=== PATIENT | female | born 1985 | race Caucasian/White ===

== ENCOUNTER 2017-07-23 13:06 | Emergency (ER) | payer OTHER ==
[~2017-07-23] VITALS: Ht 160 cm; Wt 108.9 kg
[~2017-07-23 13:06] MED LIST: ACET160T6 PO; BISA-79 PO; CLON0.1T PO; DICL100G16 TP; DIVA500T2 PO; DOCU-141 PO; DULO60CA45 PO; HYDR10SY12 PO; LEVO75TA7 PO; LORA10TA68 PO; METO25TA6 PO; OXYC10TA PO; PANT40TA4 PO; SEVE800T8 PO; TOBR5DRO12 EACHEYE
[2017-07-23 13:17] VITALS: BP 132/75
== END 2017-07-23 14:26 | disposition home or self-care (01) ==
LOC: ER 13:07
DX: B34.9 Viral infection, unspecified (principal); J06.9 Acute upper respiratory infection, unspecified; J34.89 Other specified disorders of nose and nasal sinuses; F17.200 Nicotine dependence, unspecified, uncomplicated; G89.29 Other chronic pain; Z98.82 Breast implant status
CPT/HCPCS: A4606; Z7502; Z7610

== ENCOUNTER 2017-09-17 21:22 | Emergency (ER) | payer OTHER ==
[~2017-09-17] VITALS: Ht 172.7 cm; Wt 113.9 kg
[~2017-09-17 21:22] MED LIST changes: -TOBR5DRO12 EACHEYE; +TOBR5DRO36 EACHEYE
--- NOTE | 2017-09-17 21:50 | NUR ---
PT A/OX4 BREATHING EFFORTLESSLY ON ROOM AIR, PT C/O PALPITATIONS X 1 DAY, PT DENIES CP AT THIS TIME, PT PLACED ON MONITOR, PT IN GOWN, LAB CALLED FOR DRAW, WESTON LAMBERT AT BEDSIDE, NAD NOTED AT THIS TIME, WILL CONTINUE TO MONITOR
[2017-09-17 22:26] LABS: BASOPHILS # (AUTO) 0.1 /CMM (0.0-0.2); BASOPHILS % (AUTO) 1.1 % (0.0-2.0); EOSINOPHILS % (AUTO) 2.5 % (0.0-6.0); HEMATOCRIT 41 % (33-45); HEMOGLOBIN 14.2 g/dL (11.5-14.8); LYMPHOCYTES # (AUTO) 3.5 /CMM (0.8-4.8); LYMPHOCYTES % (AUTO) 29.9 % (20.0-44.0); MEAN CORPUSCULAR HGB CONC 34 g/dl (31.0-36.0); MEAN CORPUSCULAR VOLUME 88 fL (82-100); MONOCYTES % (AUTO) 8.6 % (2.0-12.0); NEUTROPHILS # (AUTO) 6.8 /CMM (1.8-8.9); NEUTROPHILS % (AUTO) 57.9 % (43.0-81.0); PLATELET COUNT (AUTO) 259 /CMM (150-450); RDW COEFFICIENT OF VARIATION 13.4 (11.5-15.0); RED BLOOD CELL COUNT(AUTO) 4.72 MIL/uL (4.0-5.2); WHITE BLOOD COUNT (AUTO) 11.7 K/uL (4.3-11.0)
[2017-09-17 22:38] LABS: CALCIUM, SERUM 8.5 mg/dL (8.5-10.1); CARBON DIOXIDE 28 mmol/L (21-32); CHLORIDE 104 mmol/L (98-107); CREATININE 0.9 mg/dL (0.6-1.3); GLUCOSE 91 mg/dL (74-106); POTASSIUM 3.8 mmol/L (3.5-5.1); SODIUM SERUM 140 mmol/L (136-145); UREA NITROGEN, BLOOD 11 mg/dL (7-18)
[2017-09-17 22:43] LABS: INR 0.91 (0.87-1.13)
[2017-09-17 22:44] LABS: ALANINE AMINOTRANSFERASE 25 U/L (12-78); ALBUMIN 3.3 g/dL (3.4-5.0); ALKALINE PHOSPHATASE 43 U/L (46-116); ASPARTATE AMINOTRANSFERASE 14 U/L (15-37); BILIRUBIN,DIRECT 0.1 mg/dL (0.0-0.2); BILIRUBIN,TOTAL 0.2 mg/dL (0.2-1.0)
[2017-09-17 22:46] LABS: TROPONIN I < 0.017 ng/mL (0.00-0.056)
[2017-09-17] MEDS ORDERED: LIDOCAINE VISCOUS 2% UD 15 ML UDC MM ONE (23:00)
[2017-09-17] MEDS ORDERED: MAG HYDROX/AL HYDROX/SIMETH 30 ML UDC PO ONE (23:00)
[2017-09-17] MEDS ORDERED: LIDOCAINE VISCOUS 2% UD 15 ML UDC ONE (23:04)
[2017-09-17] MEDS ORDERED: MAG HYDROX/AL HYDROX/SIMETH 30 ML UDC ONE (23:04)
[2017-09-17] MEDS ORDERED: LORAZEPAM 1 MG TABLET ONE (23:20)
[2017-09-17] MEDS ORDERED: LORAZEPAM 1 MG TABLET PO ONE (23:30)
--- NOTE | 2017-09-18 00:28 | NUR ---
Patient discharged to home in stable condition. Written and verbal after care instructions given. Patient verbalizes understanding of instruction. PT TOLD TO NOT DRIVE HOME, PT VERBALIZED UNDERSTANDING AND STATES SHE WILL NOT DRIVE HOME AND WILL GET AN UBER, PT WALKED OUT OF THE ER WITH A STEADY GAIT
[2017-09-18 00:31] VITALS: BP 160/81
== END 2017-09-18 00:31 | disposition home or self-care (01) ==
LOC: ER 21:23
DX: R07.89 Other chest pain (principal); E02 Subclinical iodine-deficiency hypothyroidism; G43.909 Migraine, unspecified, not intractable, without status migrainosus; F17.200 Nicotine dependence, unspecified, uncomplicated; Z98.890 Other specified postprocedural states
CPT/HCPCS: 36415; 71045-TC; 80048-TC; 80076-TC; 84439-TC; 84443-TC; 84484-TC; 84703-TC; 85025-TC; 85730-TC; A4606; Z7610

== ENCOUNTER 2019-07-06 12:13 | Emergency (ER) | payer OTHER ==
[~2019-07-06] VITALS: Ht 157.5 cm; Wt 105.7 kg
[2019-07-06 12:42] VITALS: BP 182/111
--- NOTE | 2019-07-06 13:13 | NUR ---
Patient discharged to home in stable condition. Written and verbal after care instructions given. Patient verbalizes understanding of instruction.
== END 2019-07-06 13:13 | disposition home or self-care (01) ==
LOC: ER 12:13
DX: H10.823 Rosacea conjunctivitis, bilateral (principal); L30.9 Dermatitis, unspecified; Z76.0 Encounter for issue of repeat prescription; G89.29 Other chronic pain; F17.200 Nicotine dependence, unspecified, uncomplicated; Z79.899 Other long term (current) drug therapy

== ENCOUNTER 2019-08-29 15:14 | Emergency (ER) | payer OTHER ==
[~2019-08-29] VITALS: Ht 160 cm; Wt 108.4 kg
--- NOTE | 2019-08-29 15:31 | NUR ---
BIB SELF C/O L ANKLE PAIN S/P GLF 1 WEEK AGO ON A BIRD SCOOTER. TO ER BED 3, HOOKED TO MONITOR, CHANGED TO HOSP GOWN, WARM BLANKET PROVIDED. PATIENT AOx 4, BREATHING EVEN AND UNLABORED. AWAITING MD SIMMS.
--- NOTE | 2019-08-29 15:47 | NUR ---
SEEN AND EXAMINED BY CORNELL MCCORMACK NP.
--- NOTE | 2019-08-29 16:05 | NUR ---
PULVERIZER MILL OPERATOR AT BEDSIDE FOR XRAY.
[2019-08-29 16:58] VITALS: BP 124/72
--- NOTE | 2019-08-29 16:58 | NUR ---
Patient discharged to home in stable condition. Written and verbal after care instructions given. Patient verbalizes understanding of instruction.
== END 2019-08-29 16:59 | disposition home or self-care (01) ==
LOC: ER 15:15
DX: S93.492A Sprain of other ligament of left ankle, initial encounter (principal); F17.200 Nicotine dependence, unspecified, uncomplicated; F32.9 Major depressive disorder, single episode, unspecified; F41.9 Anxiety disorder, unspecified; E03.9 Hypothyroidism, unspecified; Z60.2 Problems related to living alone; Z79.899 Other long term (current) drug therapy; X50.1XXA Overexertion from prolonged static or awkward postures, initial encounter; Y93.I9 Activity, other involving external motion; Y92.89 Other specified places as the place of occurrence of the external cause; Y99.8 Other external cause status
CPT/HCPCS: 73610-TC; 73630-TC

== ENCOUNTER 2019-09-26 02:27 | Emergency (ER) | payer OTHER ==
[~2019-09-26] VITALS: Ht 160 cm; Wt 115.7 kg
[2019-09-26 02:27] VITALS: BP 141/76
--- NOTE | 2019-09-26 03:20 | NUR ---
SEEN AND EXAMINED BY
--- NOTE | 2019-09-26 03:30 | NUR ---
TOOL GRINDING TECHNICIAN AT BEDSIDE FOR XRAY.
--- NOTE | 2019-09-26 04:22 | NUR ---
Patient discharged to home in stable condition. Written and verbal after care instructions given. Patient verbalizes understanding of instruction.
== END 2019-09-26 04:23 | disposition home or self-care (01) ==
LOC: ER 02:27
DX: B34.9 Viral infection, unspecified (principal); R06.02 Shortness of breath
CPT/HCPCS: 71045-TC

== ENCOUNTER 2020-02-17 15:50 | Emergency (ER) | payer OTHER ==
[~2020-02-17] VITALS: Ht 160 cm; Wt 115.7 kg
[~2020-02-17 15:50] MED LIST changes: -PANT40TA4 PO; +PANT40TA49 PO
--- NOTE | 2020-02-17 15:50 | NUR ---
PT BIB SELF C/O ABDOMINAL PAIN FOR 4 DAYS. PT IS AAOX4, NOT IN RESPIRATORY DISTRESS, V/S STABLE, KEPT RESTED AND COMFORTABLE. WILL CONTINUE TO MONITOR.
--- NOTE | 2020-02-17 16:03 | NUR ---
SEEN AND EXAMINED BY .
--- NOTE | 2020-02-17 16:06 | NUR ---
URINE SPECIMEN COLLECTED AND SENT TO LAB.
[2020-02-17 16:31] LABS: APPEARANCE,URINE Clear (CLEAR); BILIRUBIN,URINE Negative (NEGATIVE); BLOOD, URINE Negative Ery/uL (NEGATIVE); COLOR,URINE Yellow (YELLOW); KETONES,URINE Negative (NEGATIVE); LEUKOCYTE ESTERASE ,URINE Negative (NEGATIVE); NITRITE, URINE Negative (NEGATIVE); PROTEIN,URINE Negative (NEGATIVE); UGLUCOSE Negative (NEGATIVE)
--- NOTE | 2020-02-17 16:45 | NUR ---
TECH AT [facility] FOR US.
[2020-02-17] MEDS ORDERED: KETOROLAC TROMETHAMINE 15 MG/ML VIAL ONE (16:49)
[2020-02-17] MEDS ORDERED: KETOROLAC TROMETHAMINE INJ 30 MG/ML VIAL IV ONE (17:00)
--- NOTE | 2020-02-17 17:00 | NUR ---
IV LINE ESTABLISHED BLOOD DRAWN AND SENT TO LAB.
[2020-02-17 17:24] LABS: BASOPHILS # (AUTO) 0.1 /CMM (0.0-0.2); BASOPHILS % (AUTO) 0.8 % (0.0-2.0); EOSINOPHILS % (AUTO) 4.9 % (0.0-6.0); HEMATOCRIT 45 % (33-45); HEMOGLOBIN 15.1 g/dL (11.5-14.8); LYMPHOCYTES # (AUTO) 2.7 /CMM (0.8-4.8); LYMPHOCYTES % (AUTO) 31.7 % (20.0-44.0); MEAN CORPUSCULAR HGB CONC 34 g/dl (31.0-36.0); MEAN CORPUSCULAR VOLUME 89 fL (82-100); MONOCYTES # (AUTO) 0.8 /CMM (0.1-1.30); MONOCYTES % (AUTO) 9.3 % (2.0-12.0); NEUTROPHILS # (AUTO) 4.6 /CMM (1.8-8.9); NEUTROPHILS % (AUTO) 53.3 % (43.0-81.0); PLATELET COUNT (AUTO) 242 /CMM (150-450); RED BLOOD CELL COUNT(AUTO) 5.02 MIL/uL (4.0-5.2); WHITE BLOOD COUNT (AUTO) 8.7 K/uL (4.3-11.0)
[2020-02-17 17:41] LABS: ALBUMIN 3.9 g/dL (3.4-5.0); BILIRUBIN,TOTAL 0.5 mg/dL (0.2-1.0); CREATININE 0.8 mg/dL (0.6-1.3); TOTAL PROTEIN, SERUM 7.6 g/dL (6.4-8.2)
--- NOTE | 2020-02-17 18:16 | NUR ---
IV removed. Catheter intact and site benign. Pressure and 4x4 applied to site. No bleeding noted. Patient discharged to home in stable condition. Written and verbal after care instructions given. Patient verbalizes understanding of instruction.
[2020-02-17 18:17] VITALS: BP 128/83
== END 2020-02-17 18:17 | disposition home or self-care (01) ==
LOC: ER 15:50
DX: R10.84 Generalized abdominal pain (principal); G89.29 Other chronic pain; F17.200 Nicotine dependence, unspecified, uncomplicated; Z60.2 Problems related to living alone; Z79.899 Other long term (current) drug therapy
CPT/HCPCS: 36415; 76705; 80048; 80076; 81001; 83690; 84703; 85025; 96374; 99284; J1885; 81000-TC

== ENCOUNTER 2020-07-12 12:27 | Emergency (ER) | payer OTHER ==
[~2020-07-12] VITALS: Ht 170.2 cm; Wt 99.3 kg
[2020-07-12 12:37] VITALS: BP 119/87
[2020-07-12 12:58] LABS: BASOPHILS # (AUTO) 0.1 /CMM (0.0-0.2); EOSINOPHILS % (AUTO) 3.3 % (0.0-6.0); HEMATOCRIT 44 % (33-45); HEMOGLOBIN 15.1 g/dL (11.5-14.8); LYMPHOCYTES % (AUTO) 24.6 % (20.0-44.0); MEAN CORPUSCULAR HGB CONC 34 g/dl (31.0-36.0); MEAN CORPUSCULAR VOLUME 89 fL (82-100); MONOCYTES # (AUTO) 0.7 /CMM (0.1-1.30); MONOCYTES % (AUTO) 8.6 % (2.0-12.0); NEUTROPHILS % (AUTO) 62.5 % (43.0-81.0); PLATELET COUNT (AUTO) 229 /CMM (150-450); RED BLOOD CELL COUNT(AUTO) 4.95 MIL/uL (4.0-5.2)
[2020-07-12 13:21] LABS: ALBUMIN 3.7 g/dL (3.4-5.0); BILIRUBIN,DIRECT 0.1 mg/dL (0.0-0.2); BILIRUBIN,TOTAL 0.4 mg/dL (0.2-1.0); CALCIUM, SERUM 8.8 mg/dL (8.5-10.1); CREATININE 0.9 mg/dL (0.6-1.3); POTASSIUM 3.5 mmol/L (3.5-5.1); TOTAL PROTEIN, SERUM 7.5 g/dL (6.4-8.2)
[2020-07-12 13:22] LABS: BILIRUBIN,URINE SMALL (NEGATIVE); COLOR,URINE YELLOW (YELLOW); LEUKOCYTE ESTERASE ,URINE Negative (NEGATIVE); NITRITE, URINE Negative (NEGATIVE); PH,URINE 5.5 (5.0-8.0); PROTEIN,URINE Trace mg/dl (NEGATIVE); UGLUCOSE Negative (NEGATIVE); UROBILINOGEN,URINE 0.2 EU/dL (0.2)
--- NOTE | 2020-07-12 13:47 | NUR ---
Patient discharged to home in stable condition. Written and verbal after care instructions given. Patient verbalizes understanding of instruction.
[2020-07-12 13:50] LABS: BACTERIA,URINE Few /HPF (None Seen); RBC,URINE 0-2 /HPF (0-2); SQUAMOUS EPITHELIAL CELL,UR 0-2 /HPF (None Seen); WBC,URINE 0-2 /HPF (0-3)
[2020-07-12 13:51] LABS: MUCUS,URINE Rare /LPF (None Seen)
== END 2020-07-12 13:49 | disposition home or self-care (01) ==
LOC: ER 12:29
DX: R10.84 Generalized abdominal pain (principal); F17.200 Nicotine dependence, unspecified, uncomplicated; Z60.2 Problems related to living alone; Z79.899 Other long term (current) drug therapy
CPT/HCPCS: 36415; 76700-TC; 80048-TC; 80076-TC; 81001; 83690-TC; 84703-TC; 85025-TC

== ENCOUNTER 2020-11-23 21:49 | Emergency (ER) | payer OTHER ==
[~2020-11-23] VITALS: Ht 157.5 cm; Wt 97.5 kg
[2020-11-23] MEDS ORDERED: NA PHOS,M-B/NA PHOS,DI-BA 1 EA ENEMA RC ONE ×2 (22:30→22:39)
--- NOTE | 2020-11-23 22:32 | NUR ---
BIBS TO ER BED 7. AAOX4. NOT IN RESP DISTRESS. AMBULATORY. CAME IN FOR RECTAL PAIN AND FEELING OF FULLNESS IN THE RECTUM X 3 DAYS AND CONSTIPATION IN THE PAST 6 DAYS. PROVIDER AT BEDSIDE FOR EVAL.
[2020-11-23] MEDS ORDERED: LIDOCAINE 2% JEL UROJET 10 ML MM ONE (23:08)
[2020-11-23] MEDS ORDERED: HYDR30CR79 TP (23:22)
[2020-11-23] MEDS ORDERED: DOCU-141 PO (23:22)
--- NOTE | 2020-11-23 23:34 | NUR ---
PT IN BATHROOM
[2020-11-24] MEDS ORDERED: LIDOCAINE 2% JEL UROJET 10 ML MM ONE
[2020-11-24] MEDS ORDERED: DOCUSATE SODIUM 100 MG CAPSULE PO ONE (00:49)
[2020-11-24] MEDS ORDERED: DOCUSATE SODIUM 100 MG CAPSULE PO SCH (01:00)
--- NOTE | 2020-11-24 01:14 | NUR ---
Patient discharged to home in stable condition. Written and verbal after care instructions given. Patient verbalizes understanding of instruction.Pt ambulatory with a steady gait
[2020-11-24 01:16] VITALS: BP 132/95
== END 2020-11-24 01:16 | disposition home or self-care (01) ==
LOC: ER 21:52
DX: K59.00 Constipation, unspecified (principal); K64.4 Residual hemorrhoidal skin tags; R51.9 Headache, unspecified; F10.10 Alcohol abuse, uncomplicated; F17.200 Nicotine dependence, unspecified, uncomplicated; Y90.9 Presence of alcohol in blood, level not specified; Z60.2 Problems related to living alone; Z79.899 Other long term (current) drug therapy
CPT/HCPCS: 99283; J3490

== ENCOUNTER 2022-04-06 15:39 | Emergency (ER) | payer OTHER ==
[~2022-04-06] VITALS: Ht 157.5 cm; Wt 95.7 kg
[~2022-04-06 15:39] MED LIST changes: +HYDR30CR79 TP
[2022-04-06 16:18] VITALS: BP 118/65
--- NOTE | 2022-04-06 17:00 | NUR ---
Pt came out of the room highly Irate/voice raised/appears flustered/angry and frustrated "I have been waiting for a LONG time they did an EKG and was told they will get blood- that has not been done yet". Pt able to express concern: "Did they forget about me/feel ignored" Tried to placate/explain and update patient to no avail NOT wanting to hear explenation nor cooperate.
--- NOTE | 2022-04-06 17:45 | NUR ---
AT BEDSIDE FOR EVAL
--- NOTE | 2022-04-06 18:40 | NUR ---
CLINICAL RADIOLOGIST AT BEDSIDE FOR BLOOD DRAW,REFUSED AND BECAME VERBALLY AGGRESSIVE TOWARDS AND NURSING STAFF.
--- NOTE | 2022-04-06 18:48 | NUR ---
WALKED OT OF THE ER WHILE CURSING STAFF IN STATION
== END 2022-04-06 18:50 | disposition left against medical advice (07) ==
LOC: ER 15:41
DX: R00.2 Palpitations (principal); F17.200 Nicotine dependence, unspecified, uncomplicated; Z60.2 Problems related to living alone; Z79.899 Other long term (current) drug therapy
CPT/HCPCS: 71045-TC

== ENCOUNTER 2023-03-13 10:19 | Emergency (ER) | payer OTHER ==
[~2023-03-13] VITALS: Ht 157.5 cm; Wt 97.5 kg
[2023-03-13] MEDS ORDERED: KETOROLAC TROMETHAMINE INJ 30 MG/ML VIAL IV ONE (11:00)
[2023-03-13] MEDS ORDERED: diphenhydrAMINE HCL 50 MG/ML VIAL IV ONE (11:00)
[2023-03-13] MEDS ORDERED: PROCHLORPERAZINE EDISYLATE 10 MG/2 ML VIAL IVP ONE (11:00)
[2023-03-13] MEDS ORDERED: IV NS 0.9% 1,000 ML IV ONE (11:00)
[2023-03-13] MEDS ORDERED: PROCHLORPERAZINE EDISYLATE 10 MG/2 ML VIAL ONE (11:03)
[2023-03-13] MEDS ORDERED: Magnesium 1GM/D5W 100ML PREMIX 100 ML IV ONE ×2 (11:03→12:27)
[2023-03-13] MEDS ORDERED: KETOROLAC TROMETHAMINE INJ 30 MG/ML VIAL ONE (11:03)
[2023-03-13] MEDS ORDERED: diphenhydrAMINE HCL 50 MG/ML VIAL ONE (11:03)
[2023-03-13] MEDS: Magnesium 1GM/D5W 100ML PREMIX 100 ML IV SCH ×2 (11:20→12:29)
[2023-03-13] MEDS ORDERED: PROC-11 PO (13:46)
[2023-03-13] MEDS ORDERED: DIPH25CA83 PO (13:46)
[2023-03-13 14:27] VITALS: BP 145/73; TEMP 99; O2SAT 100
== END 2023-03-13 14:32 | disposition home or self-care (01) ==
LOC: ER 10:24
DX: G43.909 Migraine, unspecified, not intractable, without status migrainosus (principal); F17.200 Nicotine dependence, unspecified, uncomplicated; Z79.899 Other long term (current) drug therapy; Z60.2 Problems related to living alone
CPT/HCPCS: 99284; 96365; 96375; 96366; J0780; J1200; J1885; J7030; J3475 ×2